=== PATIENT | male | born 1980 | race Hispanic/Latino ===

== ENCOUNTER 2017-02-27 06:16 | Day surgery (SDC) | payer OTHER ==
[2016-05-22 08:29] VITALS: BMI 41.5
[2017-02-27 07:12] VITALS: O2SAT 98
[2017-02-27] MEDS ORDERED: Lactated Ringer's 1,000 ML IV ONE ×2 (08:07)
[2017-02-27] MEDS ORDERED: Lidocaine 4% (Laryng-O-Jet) Kit MM ONE (08:18)
[2017-02-27] MEDS ORDERED: Simethicone 40 mg/0.6 ml Liquid (30 ml) ONE (08:19)
[2017-02-27] MEDS ORDERED: Propofol 10 mg/ml Inj (20 ML) ONE ×2 (08:21→08:51)
[2017-02-27] MEDS ORDERED: Midazolam 2 MG/2 ML VIAL ONE (08:21)
[2017-02-27] MEDS ORDERED: Lidocaine Hydrochloride 5 ML INJ ONE (08:21)
[2017-02-27] MEDS ORDERED: Lactated Ringer's 500 ML IV ONE (09:01)
[2017-02-27 09:25] VITALS: TEMP 98.6
[2017-02-27 10:01] VITALS: BP 120/77; PULSE 63; RESP 12
== END 2017-02-27 10:50 | disposition home or self-care (01) ==
LOC: C.ENDO 06:16
PROVIDERS: ATTEND Internal Medicine
DX: D13.1 Benign neoplasm of stomach (principal); K29.60 Other gastritis without bleeding
CPT/HCPCS: 43270; 88305; 88312; 88342; J2250; J2704; J7120